=== PATIENT | female | born 1985 | race Caucasian/White ===

== ENCOUNTER 2018-03-21 03:41 | Emergency (ER) | payer BC, MEDICAID ==
[2018-03-21] MEDS ORDERED: Metoclopramide 10 MG/2 ML SDV IVPUSH ONE (04:26)
[2018-03-21] MEDS ORDERED: Lactated Ringers 1,000 ML IV ONE (04:26)
[2018-03-21] MEDS ORDERED: fentaNYL 100 MCG/2 ML SDV IVPUSH ONE (04:26)
--- NOTE | 2018-03-21 04:33 | EDM.PDOC ---
<Neptali Alarcon G - Last Filed: 03/21/18 04:27> ED HPI GENERAL MEDICAL PROBLEM - General Chief Complaint: Abdominal Pain Stated Complaint: RT ABD PAIN Time Seen by Provider: 03/21/18 04:15 Source of Information: Reports: Patient, RN History Limitations: Reports: No Limitations - History of Present Illness INITIAL COMMENTS - FREE TEXT/NARRATIVE: 32 yo female presents with onset of RLQ abdominal pain since 7 pm tonight. After the onset of the pain she also developed nausea, vomiting, and diarrhea. No fever. Pain is worse with movement. No blood loss. Has Norplant and does not have menses so does not know if she is . Has had her gallbladder out only. Does have a hx of kidney stones. Is visiting until Tuesday from [place], here with her mother. Onset: Gradual Onset Date: 03/20/18 Onset Time: 19:00 Duration: Hour(s):, Constant, Getting Worse Location: Reports: Abdomen (RLQ) Quality: Reports: Ache Severity: Moderate Improves with: Reports: Rest Worsens with: Reports: Movement Context: Reports: Other (also has NVD) Associated Symptoms: Reports: Loss of Appetite, Nausea/Vomiting. 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: - Past Surgical History GI Surgical History: Reports: Cholecystectomy Female Surgical History: Reports: Section Social & Family History - Tobacco Use Smoking Status *Q: Never Smoker - Caffeine Use Caffeine Use: Reports: Coffee, Soda - Recreational Drug Use Recreational Drug Use: No ED ROS GENERAL - Review of Systems Review Of Systems: See Below Constitutional: Reports: Decreased Appetite HEENT: Reports: No Symptoms Respiratory: Reports: No Symptoms Cardiovascular: Reports: No Symptoms Endocrine: Reports: No Symptoms GI/Abdominal: Reports: Abdominal Pain, Diarrhea, Decreased Appetite, Nausea, Vomiting. Denies: Black Stool, Bloody Stool, Constipation, Distension, Flatus, Hematemesis, Hematochezia, Melena : Reports: No Symptoms Musculoskeletal: Reports: No Symptoms Skin: Reports: No Symptoms Neurological: Reports: No Symptoms ED EXAM, GI/ABD - Physical Exam Exam: See Below Exam Limited By: No Limitations General Appearance: Alert, WD/WN, Mild Distress, Obese Eyes: Bilateral: Normal Appearance Ears: Normal External Exam, Normal Canal, Hearing Grossly Normal, Normal TMs Nose: Normal Inspection, Normal Mucosa, No Blood Throat/Mouth: Normal Inspection, Normal Lips, Normal Oropharynx, Normal Voice, No Airway Compromise Head: Atraumatic, Normocephalic Neck: Normal Inspection Respiratory/Chest: No Respiratory Distress, Lungs Clear, Normal Breath Sounds, No Accessory Muscle Use Cardiovascular: Regular Rate, Rhythm, No Edema GI/Abdominal Exam: Soft, Tender, Abnormal Bowel Sounds (decreased). No: Non- Tender, No Distention, Distended Back Exam: Normal Inspection, CVA Tenderness (R). No: CVA Tenderness (L) Extremities: Normal Inspection, Normal Range of Motion, Non-Tender, No Pedal Edema Neurological: Alert, Oriented, CN II-XII Intact, Normal Cognition, No Motor/ Sensory Deficits Psychiatric: Normal Affect, Normal Mood Skin Exam: Warm, Dry, Intact, Normal Color, No Rash Lymphatic: No Adenopathy Course - Vital Signs Last Recorded V/S: Last Vital Signs Temp 97.1 F 03/21/18 04:02 Pulse 75 03/21/18 08:06 Resp 16 03/21/18 08:06 BP 107/65 03/21/18 08:06 Pulse Ox 99 03/21/18 08:06 - Orders/Labs/Meds Orders: Active Orders 24 hr Category Date Time Status Abdomen Pelvis w Cont [CT] Stat Exams 03/21/18 05:33 Taken CULTURE URINE [RM] Stat Lab 03/21/18 05:33 Received UA W/MICROSCOPIC [URIN] Stat Lab 03/21/18 05:10 Ordered Labs: Laboratory Tests 03/21/18 03/21/18 03/21/18 Range/Units 04:27 04:27 04:27 WBC 10.5 (4.5-11.0) K/uL RBC 4.39 (3.30-5.50) M/uL Hgb 13.7 (12.0-15.0) g/dL Hct 37.7 (36.0-48.0) % MCV 86 (80-98) fL MCH 31 (27-31) pg MCHC 36 (32-36) % Plt Count 313 (150-400) K/uL Sodium 137 L (140-148) mmol/L Potassium 3.4 L (3.6-5.2) mmol/L Chloride 103 (100-108) mmol/L Carbon Dioxide 23 (21-32) mmol/L Anion Gap 14.4 H (5.0-14.0) mmol/L BUN 17 (7-18) mg/dL Creatinine 0.9 (0.6-1.0) mg/dL Est Cr Clr Drug Dosing 87.27 mL/min Estimated GFR (MDRD) > 60 (>60) Glucose 98 (74-106) mg/dL Calcium 8.7 (8.5-10.1) mg/dL C-Reactive Protein 1.47 H (0.0-0.3) mg/dL HCG, Qual Negative Urine Color Urine Appearance Urine pH (4.5-8.0) Ur Specific [place] (1.008-1.030) Urine Protein (NEGATIVE) mg/dL Urine Glucose (UA) (NEGATIVE) mg/dL Urine Ketones (NEGATIVE) mg/dL Urine Occult Blood (NEGATIVE) Urine Nitrite (NEGATIVE) Urine Bilirubin (NEGATIVE) Urine Urobilinogen (NORMAL) mg/dL Ur Leukocyte Esterase (NEGATIVE) Urine RBC (0-5) Urine WBC (0-5) Ur Epithelial Cells Amorphous Sediment Urine Bacteria Urine Mucus 03/21/18 Range/Units 05:10 WBC (4.5-11.0) K/uL RBC (3.30-5.50) M/uL Hgb (12.0-15.0) g/dL Hct (36.0-48.0) % MCV (80-98) fL MCH (27-31) pg MCHC (32-36) % Plt Count (150-400) K/uL Sodium (140-148) mmol/L Potassium (3.6-5.2) mmol/L Chloride (100-108) mmol/L Carbon Dioxide (21-32) mmol/L Anion Gap (5.0-14.0) mmol/L BUN (7-18) mg/dL Creatinine (0.6-1.0) mg/dL Est Cr Clr Drug Dosing mL/min Estimated GFR (MDRD) (>60) Glucose (74-106) mg/dL Calcium (8.5-10.1) mg/dL C-Reactive Protein (0.0-0.3) mg/dL HCG, Qual Urine Color [place] Urine Appearance Slightly cloudy Urine pH 6.0 (4.5-8.0) Ur Specific [place] 1.020 (1.008-1.030) Urine Protein Negative (NEGATIVE) mg/dL Urine Glucose (UA) Normal (NEGATIVE) mg/dL Urine Ketones 15 H (NEGATIVE) mg/dL Urine Occult Blood Moderate (NEGATIVE) Urine Nitrite Negative (NEGATIVE) Urine Bilirubin Small (NEGATIVE) Urine Urobilinogen 1 (NORMAL) mg/dL Ur Leukocyte Esterase Large (NEGATIVE) Urine RBC 10-20 H (0-5) Urine WBC 10-20 H (0-5) Ur Epithelial Cells Many Amorphous Sediment Not seen Urine Bacteria Few Urine Mucus Rare Meds: Medications Discontinued Medications Generic Name Dose Route Start Last Admin Trade Name Freq PRN Reason Stop Dose Admin Fentanyl 100 mcg 03/21/18 04:26 03/21/18 04:38 Sublimaze IVPUSH 03/21/18 04:27 100 mcg ONETIME ONE Administration Hyoscyamine 0.125 mg 03/21/18 07:50 03/21/18 08:06 Hyomax-Sl SL 03/21/18 07:51 0.125 mg ONETIME ONE Administration Lactated Ringer's 1,000 mls @ 1,000 mls/hr 03/21/18 04:26 03/21/18 04:43 Ringers, Lactated IV 03/21/18 05:25 1,000 mls/hr BOLUS ONE Administration Sodium Chloride 85 mls @ 4 mls/sec 03/21/18 06:18 03/21/18 06:27 Normal Saline IV 03/21/18 06:19 4 mls/sec ASDIRECTED STA Administration Iopamidol 150 ml 03/21/18 06:17 03/21/18 06:27 Isovue-300 (61%) IV 03/21/18 06:18 150 ml . DIRECTED STA Administration Ketorolac Tromethamine 30 mg 03/21/18 05:35 03/21/18 05:40 Toradol IVPUSH 03/21/18 05:36 30 mg ONETIME ONE Administration Metoclopramide HCl 10 mg 03/21/18 04:26 03/21/18 04:36 Reglan IVPUSH 03/21/18 04:27 10 mg ONETIME ONE Administration Ondansetron HCl 4 mg 03/21/18 05:35 03/21/18 05:39 Zofran IVPUSH 03/21/18 05:36 4 mg ONETIME ONE Administration Departure - Departure Disposition: Home, Self-Care 01 Clinical Impression: Gastroenteritis - Discharge Information Referrals: PCP,None [Primary Care Provider] - Forms: ED Department Discharge Additional Instructions: Use the hyoscyamine as needed for abdominal cramping symptoms, use Zofran as needed for nausea and vomiting symptoms, use ibuprofen for baseline pain control however if pain breaks through try the hydrocodone with the caution this may cause constipation, please follow-up with your primary care provider upon return home if no improvement, call or return to the emergency department worsening of symptoms <Neeraj Saeed - Last Filed: 03/21/18 08:47> Departure - Departure Time of Disposition: 08:46 Condition: Fair - Assessment/Plan Plan: Assessment Acuity = acute Site and laterality = gastroenteritis Etiology = suspicious for viral cause Manifestations = nausea, vomiting, diarrhea Location of injury = Home Lab values = CBC, BMP unremarkable CRP slightly elevated 1.47, urinalysis reveals 10-20 rbc's consistent hematuria and 10-20 WBCs consistent with pyuria with few bacteria, CT scan describes a nonspecific enteritis in the lower: Plan She had good relief of her abdominal discomfort with Anaspaz, prescription written for Anaspaz 0.125 mg subcutaneous every 4 hours when necessary total #20 , Zofran ODT 4 mg 1 tab by mouth 3 times a day when necessary total #20 and hydrocodone 5/325 one tablet by mouth 3 times a day when necessary total #10, have her follow-up with her primary care provider upon return home if not better This note was dictated using [employer] voice recognition software please call with any questions on syntax or grammar.
[2018-03-21] MEDS ORDERED: Ondansetron 4 MG/2 ML SDV IVPUSH ONE (05:35)
[2018-03-21] MEDS ORDERED: Ketorolac 30 MG/ML SDV IVPUSH ONE (05:35)
[2018-03-21] MEDS ORDERED: Iopamidol 612 MG/ML 150 ML Bottle IV STA (06:17)
[2018-03-21] MEDS ORDERED: Hyoscyamine 0.125 MG Tab.SL SL ONE (07:50)
== END 2018-03-21 09:00 | disposition home or self-care (01) ==
LOC: JP.ED 03:41
DX: K52.9 Noninfective gastroenteritis and colitis, unspecified (principal); Z88.2 Allergy status to sulfonamides; Z88.8 Allergy status to other drugs, medicaments and biological substances
CPT/HCPCS: 36415; 74177; 80048; 81001; 84703; 85027; 86140; 87086; 96361; 96374; 96375; 99284-25; A9270-GY; J1885; J2405; J2765; J3010; J7030; J7120